=== PATIENT | female | born 1985 | race Hispanic/Latino ===

== ENCOUNTER 2024-12-19 08:14 | Emergency (ER) | payer SELFPAY ==
[~2024-12-19] VITALS: Ht 154.9 cm; Wt 77.1 kg
--- NOTE | 2024-12-19 08:29 | ERN ---
ED Note History of Present Illness Stated Complaint: FELL IN HOLE, LEFT FOOT EXTREME PAIN Chief Complaint: FOOT INJURY/PAIN Time Seen by MD: 08:17 Dictation: This is a 39-year-old female who presented to the emergency room stating that she fell in a hole or ditch last evening as she was walking and did not notice and she started experiencing severe pain in her left foot. No head injury no loss of consciousness. She is not on any blood thinners. She is able to ambulate and walk and move her toes Temperature 98.3 pulse 82 respirations 16 blood pressure 123/94 with a pulse oximetry of 99% on room air Allergies: Coded Allergies: No Known Drug Allergies (Unverified Allergy, Unknown, 12/19/24) Home Meds Active Scripts Ketorolac Tromethamine (Toradol) 10 Mg Tab, 10 MG PO QID for pain for 5 Days, #20 TAB 0 Refills Prov:TANI WASHINGTON MD 12/19/24 Past Medical History Past Medical History: No Pertinent History Surgical History: Tonsillectomy Family History: Negative Social History: Negative RN Note Reviewed/Agreed w/PFSH: Yes Review of System Dictation Constitutional: Negative for fever,chills, and weight loss Eyes: Negative for injury, pain,redness, and discharge ENT: Negative for injury,pain or swelling Cardiovascular: Negative for chest pain, palpitations, and edema Respiratory: Negative for shortness of breath, cough, and wheezing, Abdomen/GI: Negative for abdominal pain, nausea, vomiting, diarrhea, and constipation Back: Negative for injury and pain : Negative for injury, bleeding and discharge MS/Extremity: Negative for injury and deformity positive for extreme pain of the left foot associated with swelling Skin: Negative for rash, and discoloration Neuro: Negative for headache, weakness, numbness, tingling, and seizure Psych: Negative for suicide ideation, homicidal ideation, and hallucinations Initial Vital Sign VS Vital Signs Date Time Temp Pulse Resp B/P (MAP) Pulse Ox O2 Delivery O2 Flow Rate FiO2 12/19/24 08:15 98.2 82 16 123/94 99 Room Air 0 12/19/24 10:21 21 Physical Exam Dictation General: awake, alert, NAD obese female Head/Face: Normocephalic, atraumatic Eyes: PERRL, EOMI, vision at baseline ENT: oral cavity clear, TMs clear, no signs of infection Neck: Trachea midline, supple, no nuchal rigidity Cardiovascular: RRR, normal S1/S2, No MRGs, no JVD Respiratory: CTAB, no respiratory distress, No rales or wheezes Abdomen: Soft, non-tender, non-distended, normal bowel sounds, no guarding or rebound. Skin: Warm, dry, normal turgor, no rash MS/Extremity: Pulses equal, no cyanosis, neurovascular intact, FROM left foot dorsum ecchymosis and slight deformity of the 2nd great toe. Severe pain with any movement Neuro: COAx4, GCS 15, strength 5/5, CN 2-12 intact, normal cerebellar exam, normal gait, Psych: Normal behavior, mood, and affect normal Extremities-trace edema without any palpable cords, Homans sign is negative Results (Laboratory/Radiology) Laboratory/Radiology Laboratory Tests Test 12/19/24 08:34 Urine HCG, Qualitative NEGATIVE (NEGATIVE) Labs Reviewed?: Yes X-RAY Comment: REASON: h/o fall into a hole with injury ORDERING PHYSICIAN: TANI WASHINGTON MD PROCEDURE: FT 3VW LT - FOOT COMP 3+VWS LT Exam Type: FOOT COMP 3+VWS LT Clinical Information: h/o fall into a hole with injury Comparison: None Findings and impression: Examination shows an intra-articular comminuted fracture of the proximal aspect of the second metatarsals. Denies a, the second through fifth metatarsals demonstrate mild lateral displacement and this is suggestive of a Lisfranc fracture. DICTATED BY: BETTINA LUGO MD DATE: 12/19/24 0954 ELECTRONICALLY SIGNED BY: BETTINA LUGO MD DATE: 12/19/24 0957 ED Course ED Course Orders Procedure Category Date Status Time Foot Comp 3+Vws Lt RAD 12/19/24 Resulted 08:25 ,Urine Test LAB 12/19/24 Complete 08:25 Ketorolac PHA 12/19/24 Complete Tromethamine 30mg/Ml 09:30 Morphine 2mg Syg PHA 12/19/24 Complete (Morphine 2mg Syg) 10:30 Ondansetron 4mg PHA 12/19/24 Complete Tablet (Zofran 4mg 10:30 Current Medications Medications (Trade) Dose Ordered Sig/Arti Route PRN Reason Start Time Stop Time Status Last Admin Dose Admin Ketorolac Tromethamine (toRADol) 30 mg ONCE ONCE IM 12/19/24 09:30 12/19/24 09:31 DC 12/19/24 09:18 Morphine Sulfate (morPHINE 2MG SYG) 2 mg ONCE ONCE IM 12/19/24 10:30 12/19/24 10:31 DC 12/19/24 10:18 Ondansetron HCl (zoFRAN 4MG TABLET) 4 mg ONCE ONCE PO 12/19/24 10:30 12/19/24 10:31 DC 12/19/24 10:18 Vital Signs Date Time Temp Pulse Resp B/P (MAP) Pulse Ox O2 Delivery O2 Flow Rate FiO2 12/19/24 10:21 97.9 79 20 123/69 99 Room Air* 0 21 12/19/24 08:15 98.2 82 16 123/94 99 Room Air 0 We will perform imaging and administer medications according to the patient's complaint. Once the results are available, will review and personally interpreted the labs to rule out any acute life-threatening emergency the trach require immediate intervention and treatment. I will then re-evaluate the patient after treatment and diagnostic exams have return to determine whether the patient requires any further testing, can safely be discharged home or need further admission to hospital for additional treatment and evaluation. test is negative. Trial of Toradol 9:18 a.m.-x-ray of the left foot-I could appreciate an obvious fracture of the 2nd metatarsal comminuted. Radiology report is pending I updated the patient that I am concerned about a comminuted fracture and need for stabilization and casting and she was agreeable. She was also trained on using the crutches. I have recommended that she needs to see Orthopedics physician eligio and given a referral to Dr. Uzair Mann Foot cast and discharge to follow up with her PCP or ortho Medical Decision Making MDM MDM: Differential diagnosis: Strain, contusion, fracture, injury to the ligaments or tendons, sprain Rationale: Tests considered and ordered secondary to shared decision making include: Previous outside records reviewed: Old ER visits. Risk of complication and/or morbidity or mortality of patient management: None Medications-Per medication reconciliation Need for hospitalization: Patient does not meet criteria for hospitalization. Need for emergency major/minor surgery: No There are no social concerns with this patient. Prescription drug management Prescriptions will include symptomatic care Patient's prior external medical records from other ER visits were reviewed by me as indicated. Prior testing and results from previous visits were reviewed. Prior tests were taken into account with medical decision making and resource utilization, independent historian/historians were used to obtain complete medical history. I independently interpreted the test that were performed, results were reviewed by me and considered findings on radiology if ordered. Medical management and examination interpretation discussions were had by me with other qualified healthcare professionals as indicated for the patient's care. Procedure Procedure Dictation: Cast of the left foot-12 19 2024 Diagnosis/indication Comminuted fracture of the 2nd metatarsal bone Informed consent was obtained from the patient-risks benefits alternatives and outcomes were discussed extensively all questions were answered and patient verbalized full understanding and wishes to proceed with it. Procedure after appropriate time-out and pause patient was positioned in the stretcher in room ED 18 she was comfortable pain medication was given affected limb was prepped and draped in the usual sterile fashion. Cotton padding casting material were used. The left foot and up to the mid leg were casted all the way up to the base of the toes and above the left ankle joint layers of padding was applied circumferentially overlapping the underlying layer by half padding smokes to avoid protrusions and lumps extra padding was applied over bony prominences. I did not attempt to reduce the fracture for fear of further damage as it was comminuted Post casting distal neurovascular status showed palpable pulses and brisk capillary refill. Sensation was intact and there was no pallor patient tolerated the procedure extremely well without any immediate complications. Patient was instructed on cast care including any excessive swelling pain num bness or pallor and precautions not to insert any objects inside. Patient must follow up with Dr. Uzair Mann orthopedic surgeon for further evaluation of the foot with a comminuted fracture. Patient needs to continue cast immobilization and crutches were given and training was done by MANAGEMENT AIDE. Problem List Problem List: (1) Sprain of left foot (2) Injury of left foot (3) Fracture of metatarsal bone of left foot DX & DISP Disposition: Discharge Departure Impression: Primary Impression: Sprain of left foot Additional Impressions: Injury of left foot, Fracture of metatarsal bone of left foot Condition: Stable Scripts Ketorolac Tromethamine (Toradol) 10 Mg Tab 10 MG PO QID for pain for 5 Days, #20 TAB 0 Refills Prov: TANI WASHINGTON MD 12/19/24 Additional Instructions: Patient and the caregiver have been informed of all the diagnostic tests and the imaging conducted during the today's visit to the emergency room and has verbalized understanding of the results I have personally reviewed and interpreted all diagnostic exams performed here in the ER today as well as the vital signs documented by the nursing staff. The patient is now being discharged to home and should follow up with the primary care physician or the specialist as directed by the ER staff. Follow-up with primary care provider in 1 to 2 days. Take medications as directed here in the emergency room. Okay to continue home medications unless otherwise discussed during your visit in the emergency room today. Return to your nearest emergency room if symptoms worsen or if there is no improvement. Call 911 if you need immediate assistance. Take Tylenol or Motrin [id number] as needed and if no contraindications are present. Increase oral hydration. A wound culture or urine culture was ordered here in the emergency room department please follow-up with primary care provider and advise them to get repeat ports from our facility. If you had any Marbin wrap/splints that were applied here, please do not remove them until you see your primary care or specialty. Referrals: SELF,REFERRAL (PCP) UZAIR MANN ANURADHA R MD Dec 19, 2024 08:29
[2024-12-19] MEDS: ketOROlac 30MG VIAL (30MG/ML) IM ONE (09:18)
[2024-12-19] MEDS ORDERED: KETO10 PO (09:35)
--- NOTE | 2024-12-19 09:57 | HMCIMG ---
Exam Type: FOOT COMP 3+VWS LT Clinical Information: h/o fall into a hole with injury Comparison: None Findings and impression: Examination shows an intra-articular comminuted fracture of the proximal aspect of the second metatarsals. Denies a, the second through fifth metatarsals demonstrate mild lateral displacement and this is suggestive of a Lisfranc fracture.
[2024-12-19] MEDS: ondanSETRON 4MG TABLET PO ONE (10:18)
[2024-12-19] MEDS: morPHINE 2 MG SYG IM ONE (10:18)
[2024-12-19 10:21] VITALS: BP 123/69; PULSE 79; RESP 20; TEMP 97.8; O2SAT 99
--- NOTE | 2024-12-19 10:46 | NUR ---
PT STABLE AAO4 NO DISTRESS, VIATLS WNL PT MEDICATED PRIOR TO DISCHARGE FOR PAIN, NO IV AT THIS TIME, PT GIVEN INSTRUCTION FOR HOME, VERBALIZED UNDERSTANDING, SPLINT TO LLE INTACT, PT GIVEN CRUTCH EDUATION USE. PT PLACED IN W/C DRIVEN HOME BY MOTHER.
== END 2024-12-19 10:49 | disposition home or self-care (01) ==
LOC: EDH 08:14
DX: S92.322A Displaced fracture of second metatarsal bone, left foot, initial encounter for closed fracture (principal); S93.602A Unspecified sprain of left foot, initial encounter; Z90.89 Acquired absence of other organs; W18.39XA Other fall on same level, initial encounter; Y93.01 Activity, walking, marching and hiking; Y92.89 Other specified places as the place of occurrence of the external cause; Y99.8 Other external cause status
CPT/HCPCS: 99284; 81025; 73630; 96372 ×2; Q0162; J1885; J2270